=== PATIENT | male | born 1955 | race Caucasian/White ===

== ENCOUNTER 2021-11-04 09:26 | Outpatient (CLI) | payer MEDICARE ==
--- NOTE | 2021-11-04 10:26 | XRAY Report ---
PROCEDURE: Wrist 3 View BILAT INDICATIONS: BILATERAL WRIST PAIN TECHNIQUE: 3 views of each wrist were acquired. COMPARISON: None FINDINGS: Bones: Right wrist: Normal mineralization. No fractures. Normal bone alignment. Mild degenerative sub cortical sclerosis at the first carpometacarpal joint. Tiny marginal spurs. Left wrist: No fractures. Normal bone alignment. Subcortical cystic changes seen at the ulnar styloid and lateral distal aspect of the scaphoid. Minor joint space loss of the triscaphe articulation. Soft tissues: No suspicious soft tissue calcifications. Mild small vessel arteriosclerosis. IMPRESSION: 1. Mild degenerative changes bilaterally as described. Reviewed by: Petra Tomas MD on 11/04/2021 10:24 AM [facility] Approved by: Petra Tomas MD on 11/04/2021 10:24 AM [facility] Station ID: [id number]
--- NOTE | 2021-11-04 12:03 | XRAY Report ---
PROCEDURE: Knee 2 View LT INDICATIONS: LEFT KNEE PAIN TECHNIQUE: 2 views of the left knee(s) were acquired. COMPARISON: None. FINDINGS: Bones: No fractures or dislocations. Mild to moderate tricompartmental osteoarthritis in left knee i s seen more prominent in medial femoral tibial compartment. No suspicious bony lesions. Soft tissues: Small to moderate suprapatellar joint effusion is seen. No suspicious soft tissue calci fications. IMPRESSION: Mild to moderate tricompartmental osteoarthritis more prominent in medial femoral tibial compartment. Small to moderate suprapatellar joint effusion. No acute fracture or dislocation. Reviewed by: Campbell Sanz MD on 11/04/2021 12:02 PM PST Approved by: Campbell Sanz MD on 11/04/2021 12:02 PM PST Station ID: [id number]
--- NOTE | 2021-11-04 13:07 | XRAY Report ---
PROCEDURE: Hand 3 View BILAT INDICATIONS: BILATERAL HAND PAIN TECHNIQUE: 3 views of the hand(s) acquired. COMPARISON: None FINDINGS: Bones: No fractures or dislocations. There are minimal degenerative changes with joint space narrow ing of the interphalangeal joints. No erosions or proliferative changes. No suspicious bony lesions. Soft tissues: No suspicious soft tissue calcifications. IMPRESSION: 1. Minimal degenerative changes, otherwise normal bilateral hands. 2. No erosions or other evidence of inflammatory arthropathy. Reviewed by: Dean Milian on 11/04/2021 1:06 PM [facility] Approved by: Dean Milian on 11/04/2021 1:06 PM [facility] Station ID: [id number]
== END 2021-11-04 09:27 | disposition home or self-care (01) ==
LOC: DI.S 09:26
PROVIDERS: ATTEND Nurse Practitioner Family
DX: M18.11 Unilateral primary osteoarthritis of first carpometacarpal joint, right hand (principal); M19.032 Primary osteoarthritis, left wrist; M17.12 Unilateral primary osteoarthritis, left knee; M19.041 Primary osteoarthritis, right hand; M19.042 Primary osteoarthritis, left hand